=== PATIENT | male | born 1970 | race Caucasian/White ===

== ENCOUNTER 2022-06-30 11:53 | Inpatient (IN) | payer OTHER ==
[~2022-06-30] VITALS: Ht 167.6 cm; Wt 87.7 kg
[2022-06-30] MEDS ORDERED: MIDAZOLAM HCL 2 MG/2 ML VIAL IVP ONE (12:00)
[2022-06-30] MEDS ORDERED: ROCURONIUM BROMIDE 10 MG/ML 5 ML VIAL IVP ONE (12:00)
[2022-06-30] MEDS ORDERED: ONDANSETRON HCL 4 MG/2 ML VIAL IVP ONE ×2 (12:00→12:15)
[2022-06-30] MEDS ORDERED: PROPOFOL 1% 20 ML VIAL IVP ONE (12:00)
[2022-06-30] MEDS ORDERED: LIDOCAINE/PF 2% 5 ML VIAL IM ONE (12:00)
[2022-06-30] MEDS ORDERED: FentaNYL CITRATE PF 100 MCG/2 ML VIAL IVP ONE (12:00)
[2022-06-30] MEDS ORDERED: GLIP-102 PO (12:02)
[2022-06-30] MEDS ORDERED: METF-444 PO (12:02)
[2022-06-30] MEDS ORDERED: SODIUM CHLORIDE 0.9% 1,000 ML IV ONE ×4 (12:15→17:45)
[2022-06-30 12:32] LABS: BASOPHILS % (AUTO) 0.2 % (0.0-2.0); EOSINOPHILS % (AUTO) 0.1 % (1.0-6.0); HEMATOCRIT 37.2 % (41-53); HEMOGLOBIN 13.3 g/dL (13.5-17.5); LYMPHOCYTES # (AUTO) 0.8 K/uL (1.0-4.8); LYMPHOCYTES % (AUTO) 3.8 % (22.0-44.0); MEAN CORPUSCULAR HEMOGLOBIN 35.2 pg (26.0-34.0); MEAN CORPUSCULAR HGB CONC 35.6 G/dL (31.0-37.0); MEAN CORPUSCULAR VOLUME 99 fL (80-100); MONOCYTES # (AUTO) 1.3 K/uL (0.1-1.0); MONOCYTES % (AUTO) 5.7 % (2.0-9.0); NEUTROPHILS # (AUTO) 19.9 K/uL (1.8-7.7); PLATELET COUNT (AUTO) 128 K/uL (150-450); RED BLOOD CELL COUNT(AUTO) 3.77 MIL/uL (4.50-5.90)
[2022-06-30 12:36] LABS: NEUTROPHILS % (AUTO) 90.2 % (40.0-70.0)
[2022-06-30 12:44] LABS: ANION GAP 11 mmol/L (8-16); CALCIUM, TOTAL 9.4 mg/dL (8.8-10.5); CARBON DIOXIDE 21 mmol/L (22-29); CHLORIDE 95 mmol/L (98-107); CREATININE 0.83 mg/dL (0.60-1.30); GLUCOSE,RANDOM 304 mg/dL (70-110); POTASSIUM 4.1 mmol/L (3.5-5.1); SODIUM SERUM 127 mmol/L (136-145); UREA NITROGEN, BLOOD 24 mg/dL (7-18)
[2022-06-30 12:45] LABS: GLOMERULAR FILTR. RATE CALC > 60 mL/min (>60)
[2022-06-30 12:49] LABS: ALANINE AMINOTRANSFERASE 20 U/L (12-78); ALBUMIN 3.4 g/dL (3.4-5.0); ALKALINE PHOSPHATASE 94 U/L (46-116); ASPARTATE AMINOTRANSFERASE 11 U/L (15-37); LIPASE 65 U/L (73-393); TOTAL PROTEIN, SERUM 7.5 g/dL (6.4-8.2)
[2022-06-30] MEDS ORDERED: PIPERACILLIN/TAZO 3.375 GM/D5W 50 ML IV ONE (13:15)
[2022-06-30 13:20] LABS: COVID AG,FIA SOURCE NASAL SWAB
[2022-06-30 13:36] LABS: APPEARANCE,URINE CLEAR (CLEAR); BILIRUBIN,URINE NEGATIVE (NEGATIVE); GLUCOSE, URINE (UA) >=1000 mg/dL (NEGATIVE); KETONES,URINE 40-60 mg/dL (NEGATIVE); LEUKOCYTE ESTERASE ,URINE MODERATE (NEGATIVE); NITRATE,URINE NEGATIVE (NEGATIVE); OCCULT BLOOD,URINE NEGATIVE (NEGATIVE); PH,URINE 6.5 (5.0-8.0); PROTEIN,URINE TRACE mg/dL (NEGATIVE); SPECIFIC GRAVITIY, URINE 1.037 (1.003-1.030)
[2022-06-30] MEDS ORDERED: MORPHINE SULFATE 4 MG/ML SYRINGE IVP ONE (13:45)
[2022-06-30 13:46] LABS: AMPHET/METH SCREEN,URINE NEGATIVE (NEGATIVE); BARBITURATE SCREEN, URINE NEGATIVE (NEGATIVE); BENZODIAZEPINES SCREEN,URINE NEGATIVE (NEGATIVE); CANNABINOID SCREEN,URINE NEGATIVE (NEGATIVE); COCAINE SCREEN,URINE NEGATIVE (NEGATIVE); METHADONE SCREEN, URINE NEGATIVE (NEGATIVE); OPIATE SCREEN,URINE NEGATIVE (NEGATIVE)
[2022-06-30 13:48] LABS: PHENCYCLIDINE SCREEN,URINE NEGATIVE (NEGATIVE)
[2022-06-30 13:59] LABS: INR 1.1 (0.9-1.1); PROTHROMBIN TIME 11.4 SEC (9.4-11.6)
[2022-06-30] MEDS ORDERED: DEXTROSE 50%-WATER 25 GM/50 ML SYRINGE IVP PRN (14:00)
[2022-06-30] MEDS ORDERED: LORazepam 2 MG/ML VIAL IVP PRN ×2 (14:00→17:45)
[2022-06-30] MEDS ORDERED: ONDANSETRON HCL 4 MG/2 ML VIAL IVP PRN (14:00)
[2022-06-30 14:15] LABS: RBC,URINE None Seen /HPF (0-2)
[2022-06-30 14:16] LABS: BACTERIA,URINE Few /HPF (None Seen); SQUAMOUS EPITHELIAL CELL,UR Few /LPF (None Seen)
[2022-06-30] MEDS: MULTIVITAMINS WITH MINERALS, THERAPEUTIC TABLET PO SCH (16:26)
[2022-06-30] MEDS ORDERED: BUPIVACAINE 0.25%/EPI 1:200,000/PF 10 ML VIAL ONE (19:28)
[2022-06-30] MEDS ORDERED: SODIUM CL IRRIG SOLN BAG 3,000 ML IRRIG ONE (19:29)
[2022-06-30] MEDS ORDERED: SUGAMMADEX SODIUM 200 MG/2 ML VIAL IVP ONE (20:58)
[2022-06-30] MEDS ORDERED: BUPIVACAINE HCL/PF 0.25% 30 ML VIAL PERC ONE (21:00)
[2022-06-30] MEDS ORDERED: HYDROmorphone 2 MG/ML VIAL IVP PRN (21:45)
[2022-06-30] MEDS ORDERED: FentaNYL CITRATE PF 100 MCG/2 ML VIAL IVP PRN (21:45)
[2022-06-30] MEDS ORDERED: NALOXONE HCL 0.4 MG/ML VIAL IVP PRN (23:30)
[2022-06-30] MEDS ORDERED: HYDROCODONE/ACETAMINOPHEN 5-325 MG TABLET PO PRN (23:30)
[2022-06-30] MEDS ORDERED: MORPHINE SULFATE 2 MG/ML SYRINGE IVP PRN (23:30)
[2022-06-30] MEDS: DOCUSATE SODIUM 100 MG CAPSULE PO SCH (23:38)
[2022-06-30 23:46] VITALS: BP 144/74
[2022-07-01] MEDS ORDERED: SODIUM CHLORIDE 0.9% 250 ML IV ONE ×2 (00:10→12:22)
[2022-07-01] MEDS: PIPERACILLIN/TAZO 3.375 GM/D5W 50 ML IV SCH ×5 (00:21→23:58)
[2022-07-01 04:10] VITALS: BP 134/62
[2022-07-01] MEDS: ACETAMINOPHEN 325 MG TABLET PO PRN ×2 (04:54→20:19)
[2022-07-01] MEDS ORDERED: LORazepam 2 MG TABLET PO PRN (05:15)
[2022-07-01] MEDS: INSULIN LISPRO 100 UNITS/ML SQ PRN ×4 (05:51→21:43)
[2022-07-01 06:22] LABS: GLUCOMETER DEV NAME(LOC) 6N.2B; GLUCOSE,POINT OF CARE 266 MG/DL (70-110)
[2022-07-01 06:22] LABS: GLUCOMETER DEV NAME(LOC) 6N.2B; GLUCOSE,POINT OF CARE 253 MG/DL (70-110)
[2022-07-01] MEDS: 1: MAGNESIUM SULFATE 2 GM, MVI, ADULT NO.1 WITH VIT K 10 ML, THIAMINE 100 MG, FOLIC ACID IV SCH ×10 (06:38→18:08)
[2022-07-01 07:33] LABS: BASOPHILS % (AUTO) 0.1 % (0.0-2.0); EOSINOPHILS % (AUTO) 0 % (1.0-6.0); HEMATOCRIT 33.5 % (41-53); HEMOGLOBIN 11.7 g/dL (13.5-17.5); LYMPHOCYTES # (AUTO) 0.4 K/uL (1.0-4.8); LYMPHOCYTES % (AUTO) 3.2 % (22.0-44.0); MEAN CORPUSCULAR HEMOGLOBIN 35.2 pg (26.0-34.0); MEAN CORPUSCULAR VOLUME 101 fL (80-100); MONOCYTES % (AUTO) 7.2 % (2.0-9.0); PLATELET COUNT (AUTO) 120 K/uL (150-450); RED BLOOD CELL COUNT(AUTO) 3.32 MIL/uL (4.50-5.90); RED CELL DISTRIBUTION WIDTH 14.9 % (11.5-14.5)
[2022-07-01 07:37] LABS: NEUTROPHILS % (AUTO) 89.5 % (40.0-70.0)
[2022-07-01 07:48] LABS: ALANINE AMINOTRANSFERASE 25 U/L (12-78); ALBUMIN 2.8 g/dL (3.4-5.0); ALKALINE PHOSPHATASE 81 U/L (46-116); ANION GAP 13 mmol/L (8-16); ASPARTATE AMINOTRANSFERASE 31 U/L (15-37); BILIRUBIN,TOTAL 5.8 mg/dL (0.1-1.0); CALCIUM, TOTAL 8.4 mg/dL (8.8-10.5); CARBON DIOXIDE 18 mmol/L (22-29); CHLORIDE 99 mmol/L (98-107); GLUCOSE,RANDOM 241 mg/dL (70-110); SODIUM SERUM 130 mmol/L (136-145); TOTAL PROTEIN, SERUM 6.5 g/dL (6.4-8.2); UREA NITROGEN, BLOOD 18 mg/dL (7-18)
[2022-07-01 07:49] LABS: GLOMERULAR FILTR. RATE CALC > 60 mL/min (>60)
[2022-07-01] MEDS: MULTIVITAMINS WITH MINERALS, THERAPEUTIC TABLET PO SCH (08:15)
[2022-07-01] MEDS: PANTOPRAZOLE SODIUM 40 MG/VIAL IVP SCH (08:15)
[2022-07-01] MEDS: DOCUSATE SODIUM 100 MG CAPSULE PO SCH ×2 (08:15→20:19)
[2022-07-01] MEDS: OXYGEN THERAPY IH SCH ×2 (08:16→20:00)
[2022-07-01 14:01] LABS: GLUCOMETER DEV NAME(LOC) 6N.2B; GLUCOSE,POINT OF CARE 199 MG/DL (70-110)
[2022-07-01 17:01] LABS: GLUCOMETER DEV NAME(LOC) 6N.2B; GLUCOSE,POINT OF CARE 213 MG/DL (70-110)
[2022-07-01 17:45] VITALS: BP 137/78
[2022-07-01 19:25] VITALS: BP 147/75
[2022-07-02 00:01] LABS: GLUCOMETER DEV NAME(LOC) 6N.2B; GLUCOSE,POINT OF CARE 195 MG/DL (70-110)
[2022-07-02] MEDS: 1: MAGNESIUM SULFATE 2 GM, MVI, ADULT NO.1 WITH VIT K 10 ML, THIAMINE 100 MG, FOLIC ACID IV SCH ×5 (02:52)
[2022-07-02 04:19] VITALS: BP 147/76
[2022-07-02] MEDS: ACETAMINOPHEN 325 MG TABLET PO PRN (04:37)
[2022-07-02] MEDS: PIPERACILLIN/TAZO 3.375 GM/D5W 50 ML IV SCH ×2 (06:02→12:17)
[2022-07-02] MEDS: INSULIN LISPRO 100 UNITS/ML SQ PRN ×2 (06:12→12:42)
[2022-07-02 06:29] LABS: BASOPHILS % (AUTO) 0.3 % (0.0-2.0); EOSINOPHILS % (AUTO) 1.1 % (1.0-6.0); HEMATOCRIT 29.3 % (41-53); HEMOGLOBIN 10.6 g/dL (13.5-17.5); LYMPHOCYTES # (AUTO) 0.5 K/uL (1.0-4.8); LYMPHOCYTES % (AUTO) 6.7 % (22.0-44.0); MEAN CORPUSCULAR HEMOGLOBIN 36.1 pg (26.0-34.0); MEAN CORPUSCULAR HGB CONC 36.3 G/dL (31.0-37.0); MEAN CORPUSCULAR VOLUME 99 fL (80-100); MONOCYTES # (AUTO) 0.8 K/uL (0.1-1.0); MONOCYTES % (AUTO) 9.3 % (2.0-9.0); NEUTROPHILS # (AUTO) 6.7 K/uL (1.8-7.7); NEUTROPHILS % (AUTO) 82.6 % (40.0-70.0); PLATELET COUNT (AUTO) 100 K/uL (150-450); RED BLOOD CELL COUNT(AUTO) 2.95 MIL/uL (4.50-5.90); RED CELL DISTRIBUTION WIDTH 14.8 % (11.5-14.5)
[2022-07-02 06:43] LABS: ALANINE AMINOTRANSFERASE 22 U/L (12-78); ALBUMIN 2.3 g/dL (3.4-5.0); ALKALINE PHOSPHATASE 72 U/L (46-116); ANION GAP 10 mmol/L (8-16); ASPARTATE AMINOTRANSFERASE 21 U/L (15-37); BILIRUBIN,TOTAL 4.9 mg/dL (0.1-1.0); CALCIUM, TOTAL 7.6 mg/dL (8.8-10.5); CARBON DIOXIDE 21 mmol/L (22-29); CHLORIDE 100 mmol/L (98-107); CREATININE 0.59 mg/dL (0.60-1.30); GLUCOSE,RANDOM 194 mg/dL (70-110); POTASSIUM 3.5 mmol/L (3.5-5.1); SODIUM SERUM 131 mmol/L (136-145); TOTAL PROTEIN, SERUM 5.7 g/dL (6.4-8.2); UREA NITROGEN, BLOOD 13 mg/dL (7-18)
[2022-07-02] MEDS ORDERED: LORazepam 2 MG TABLET PO PRN (07:00)
[2022-07-02 07:08] LABS: GLOMERULAR FILTR. RATE CALC > 60 mL/min (>60)
[2022-07-02] MEDS: OXYGEN THERAPY IH SCH (08:00)
[2022-07-02 08:15] LABS: GLUCOMETER DEV NAME(LOC) 6N.2B; GLUCOSE,POINT OF CARE 194 MG/DL (70-110)
[2022-07-02 08:23] VITALS: BP 134/63
[2022-07-02 08:41] VITALS: BP 134/63
[2022-07-02] MEDS ORDERED: LORazepam 2 MG TABLET PO SCH (09:00)
[2022-07-02] MEDS: PANTOPRAZOLE SODIUM 40 MG/VIAL IVP SCH (10:02)
[2022-07-02] MEDS: DOCUSATE SODIUM 100 MG CAPSULE PO SCH (10:02)
[2022-07-02] MEDS: MULTIVITAMINS WITH MINERALS, THERAPEUTIC TABLET PO SCH (10:02)
[2022-07-02] MEDS ORDERED: CIPR-279 PO (10:58)
[2022-07-02 11:52] LABS: GLUCOMETER DEV NAME(LOC) 6N.2B; GLUCOSE,POINT OF CARE 178 MG/DL (70-110)
[2022-07-04] MEDS ORDERED: LORazepam 1 MG TABLET PO PRN (07:00)
[2022-07-04] MEDS ORDERED: LORazepam 1 MG TABLET PO SCH (09:00)
[2022-07-05] MEDS ORDERED: LORazepam 1 MG TABLET PO PRN (07:00)
== END 2022-07-02 14:20 | disposition home or self-care (01) | DRG 710 ==
LOC: EMS 11:57 → 6S 23:16
PROVIDERS: ADMIT Internal Medicine; ATTEND Internal Medicine
PROC: 0FT44ZZ Resection of Gallbladder, Percutaneous Endoscopic Approach (ICD-10-PCS; principal; 2022-06-30 21:05)
DX: A41.9 Sepsis, unspecified organism (principal); K82.A1 Gangrene of gallbladder in cholecystitis; K70.30 Alcoholic cirrhosis of liver without ascites; K80.00 Calculus of gallbladder with acute cholecystitis without obstruction; E87.1 Hypo-osmolality and hyponatremia; E11.65 Type 2 diabetes mellitus with hyperglycemia; Z20.822 Contact with and (suspected) exposure to COVID-19; E66.9 Obesity, unspecified; Z68.31 Body mass index [BMI] 31.0-31.9, adult; F10.10 Alcohol abuse, uncomplicated; N39.0 Urinary tract infection, site not specified
CPT/HCPCS: 71045; 74181; 76700; 80053; 81001; 82962; 83605; 83690; 84145; 85025; 85610; 85730; 87040; 87081; 87086; 87186; 99285; C9113; J0690; J2250; J2270; J2405; J2543; J2704; J3010; J3411; J3475; J3490; J7030; J7050; Q9967; 36415-L1; 36415-TC